=== PATIENT | male | born 1975 | race American Indian/Alaskan Native ===

== ENCOUNTER 2019-11-19 23:17 | Emergency (ER) | payer SELFPAY ==
[2019-11-20] MEDS ORDERED: SULFAMETHOXAZOLE/TRIMETHOPRIM 800/160MG DS TAB PO ONE (03:21)
[2019-11-20] MEDS ORDERED: IBUPROFEN 600 MG TAB PO ONE (03:21)
--- NOTE | 2019-11-20 03:25 | Emergency Department Report ---
ED Male HPI - General Chief complaint: Urogenital-Male Stated complaint: PAIN IN PENIS Source: patient Mode of arrival: Ambulatory Limitations: No Limitations - History of Present Illness Initial comments: Patient is a 44-year-old -[place] male with no past medical history who presents to the ED with complaint of acute onset persistent painful erythematous maculopapular ulcerated vesicular rashes on the scrotal area, penile shaft and bilateral inguinal areas with purulent discharge for the last 2 weeks worse in the last 4 days. Patient denies fever, chills, nausea, vomiting, chest pain, shortness of breath, testicular pain, dysuria, hematuria, urinary frequency and urgency, fever, chills, cough or sore throat. Patient states that he is sexually active but with protection. MD Complaint: groin pain, other (Painful swelling erythematous ulcerated rashes with purulent discharge) -: Gradual, week(s) (2) Location: penis, right inguinal region, left inguinal region Radiation: none Severity: severe Severity scale (0 -10): 7 Quality: aching, burning, sharp Consistency: constant Improves with: none Worsens with: none denies other symptoms, rash (Erythematous maculopapular nonfluctuant rashes on the penile shaft as well as scrotum and bilateral inguinal area with purulent discharge). denies: discharge, swelling, mass, urinary retention, blood in urine, fever, nausea/vomiting, incontinence - Related Data Sexually active: Yes Previous Rx's Medication Instructions Recorded Last Taken Type Acyclovir 400 mg PO Q8H #30 tablet 11/20/19 Unknown Rx Ibuprofen [Motrin] 600 mg PO Q8H PRN #24 tablet 11/20/19 Unknown Rx Nystatin Oint [Mycostatin Oint] 1 applicatio TP Q12H #1 tube 11/20/19 Unknown Rx Sulfamethoxazole/Trimethoprim 1 each PO Q12H #20 tablet 11/20/19 Unknown Rx [Bactrim DS TAB] Allergies Allergy/AdvReac Type Severity Reaction Status Date / Time No Known Allergies Allergy Unverified 11/20/19 00:59 ED Review of Systems ROS: Stated complaint: PAIN IN PENIS Other details as noted in HPI Constitutional: denies: chills, fever Eyes: denies: eye pain, eye discharge, vision change ENT: denies: ear pain, throat pain Respiratory: denies: cough, shortness of breath, wheezing Cardiovascular: denies: chest pain, palpitations Endocrine: no symptoms reported Gastrointestinal: denies: abdominal pain, nausea, diarrhea Genitourinary: other (Erythematous maculopapular ulcerated vesicular rashes in the scrotum, penile shaft, inguinal areas with purulent discharge). denies: urgency, dysuria Musculoskeletal: denies: back pain, joint swelling, arthralgia Skin: rash, change in color, pruritus, other (Ulcerated maculopapular mildly erythematous nonfluctuant rashes with purulent discharge on penile shaft, scrotum, and bilateral inguinal areas). denies: lesions Neurological: denies: headache, weakness, paresthesias Psychiatric: denies: anxiety, depression Hematological/Lymphatic: denies: easy bleeding, easy bruising ED Past Medical Hx - Past Medical History Previous Medical History?: Yes Hx Hypertension: Yes Additional medical history: TBI - Surgical History Past Surgical History?: Yes Additional Surgical History: Head surgery - Social History Smoking Status: Current Every Day Smoker Substance Use Type: Marijuana - Medications Home Medications: Home Medications Medication Instructions Recorded Confirmed Last Taken Type Acyclovir 400 mg PO Q8H #30 tablet 11/20/19 Unknown Rx Ibuprofen [Motrin] 600 mg PO Q8H PRN #24 tablet 11/20/19 Unknown Rx Nystatin Oint [Mycostatin Oint] 1 applicatio TP Q12H #1 tube 11/20/19 Unknown Rx Sulfamethoxazole/Trimethoprim 1 each PO Q12H #20 tablet 11/20/19 Unknown Rx [Bactrim DS TAB] ED Physical Exam - General Limitations: No Limitations General appearance: alert, in no apparent distress - Head Head exam: Present: atraumatic, normocephalic, normal inspection - Eye Eye exam: Present: normal appearance, PERRL, EOMI Pupils: Present: normal accommodation - ENT ENT exam: Present: normal exam, normal orophraynx, mucous membranes moist, TM's normal bilaterally, normal external ear exam - Neck Neck exam: Present: normal inspection, full ROM. Absent: tenderness, lymphadenopathy - Respiratory Respiratory exam: Present: normal lung sounds bilaterally. Absent: respiratory distress, wheezes, rales, rhonchi, stridor, chest wall tenderness, accessory muscle use - Cardiovascular Cardiovascular Exam: Present: regular rate, normal rhythm, normal heart sounds. Absent: systolic murmur, diastolic murmur, rubs, gallop - GI/Abdominal GI/Abdominal exam: Present: soft, normal bowel sounds. Absent: tenderness, guarding, hyperactive bowel sounds, hypoactive bowel sounds - exam: Present: circumcision, other (Erythematous maculopapular vesicular ulcerated rashes with thick purulent discharge on the scrotum, penile shaft and inguinal areas bilaterally). 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 Absent: tenderness, CVA tenderness (R), CVA tenderness (L), muscle spasm, paraspinal tenderness, vertebral tenderness - Neurological Exam Neurological exam: Present: alert, oriented X3, CN II-XII intact, normal gait, reflexes normal - Psychiatric Psychiatric exam: Present: normal affect, normal mood - Skin Skin exam: Present: warm, dry, intact, normal color, rash (Erythematous maculopapular ulcerated vesicular rashes with purulent discharge on scrotum, bilateral inguinal areas and penile shaft) ED Course Vital Signs 11/19/19 23:56 Temperature 97.6 F Pulse Rate 91 H Respiratory 18 Rate Blood Pressure 128/87 O2 Sat by Pulse 95 Oximetry ED Medical Decision Making - Medical Decision Making This is a 44-year-old -[place] male who presented to the ED with painful erythematous maculopapular ulcerated vesicular rashes with persistent thick purulent discharge and tenderness in the scrotum, bilateral inguinal areas and penile shaft for 2 weeks. In the ED, patient is alert and oriented x3 and is not in distress. Patient was treated in the ED with pain medication and initial oral antibiotics. Patient was discharged home on medications including antibiotics and pain medications and was advised to follow-up with his primary care physician in 7 to 10 days for reevaluation. Patient was advised return to the ED immediately if symptoms get worse. - Differential Diagnosis acute folliculitis; genital herpes; cellulitis; abscess; tinea cruris Critical care attestation.: If time is entered above; I have spent that time in minutes in the direct care of this critically ill patient, excluding procedure time. ED Disposition Clinical Impression: Acute folliculitis, Cellulitis of shaft of penis, Genital herpes in men, Tinea cruris Disposition: - TO HOME OR SELFCARE Is pt being admited?: No Does the pt Need Aspirin: No Condition: Stable Instructions: Folliculitis (ED), Cellulitis (ED), Jock Itch (ED) Additional Instructions: Take medication with food, drink plenty of fluids and follow-up with your primary care physician in 7 to 10 days for reevaluation. Return to the ED immediately if symptoms get worse. Consider following up at the [facility] for further evaluation. Prescriptions: Acyclovir 400 mg PO Q8H #30 tablet Sulfamethoxazole/Trimethoprim [Bactrim DS TAB] 1 each PO Q12H #20 tablet Ibuprofen [Motrin] 600 mg PO Q8H PRN #24 tablet PRN Reason: Pain Nystatin Oint [Mycostatin Oint] 1 applicatio TP Q12H #1 tube Referrals: [facility] [Outside] - 7-10 days [facility] [Outside] - 3-5 Days Time of Disposition: 03:30 Print Language: MONGOLIAN
[2019-11-20 04:36] VITALS: BP 122/72
== END 2019-11-20 03:42 | disposition home or self-care (01) ==
LOC: ED 23:17
DX: L73.9 Follicular disorder, unspecified (principal); N48.22 Cellulitis of corpus cavernosum and penis; A60.00 Herpesviral infection of urogenital system, unspecified; B35.6 Tinea cruris; I10 Essential (primary) hypertension; F17.200 Nicotine dependence, unspecified, uncomplicated
CPT/HCPCS: 99282